=== PATIENT | male | born 1990 | race Caucasian/White ===

== ENCOUNTER → 2021-01-14 | Day surgery (SDC) | payer BC, OTHER ==
[~2021-01-14] MED LIST: SODIUM CHLORIDE 0.9% 50ML 50 ML ONE
[2021-01-14 17:10] VITALS: BP 128/94
== END | disposition home or self-care (01) ==
LOC: OR 12:07
PROVIDERS: ATTEND Internal Medicine Gastroenterology
DX: K29.70 Gastritis, unspecified, without bleeding (principal); D12.5 Benign neoplasm of sigmoid colon; K31.7 Polyp of stomach and duodenum; K52.9 Noninfective gastroenteritis and colitis, unspecified; K20.90 Esophagitis, unspecified without bleeding; K62.89 Other specified diseases of anus and rectum; K64.8 Other hemorrhoids; I34.1 Nonrheumatic mitral (valve) prolapse; Z88.9 Allergy status to unspecified drugs, medicaments and biological substances; Z01.812 Encounter for preprocedural laboratory examination; Z20.822 Contact with and (suspected) exposure to COVID-19; Z68.31 Body mass index [BMI] 31.0-31.9, adult
CPT/HCPCS: 43239; 45380; 45385; 83993; 87045; 87177; 87328; 87493; C9113; U0002; 45378

== ENCOUNTER → 2023-04-13 | Outpatient (REF) | payer OTHER | LOC: DX 09:05 | PROVIDERS: ATTEND Nurse Practitioner | DX: K52.9 Noninfective gastroenteritis and colitis, unspecified (principal) | CPT/HCPCS: 74250 ==